=== PATIENT | female | born 1940 | race Caucasian/White ===

== ENCOUNTER 2017-05-02 09:04 | Day surgery (SDC) | payer OTHER, BC ==
[2017-04-27 15:14] VITALS: BMI 27.4
[2017-05-02] MEDS ORDERED: PROPOFOL 20 ML ONE ×2 (09:39)
[2017-05-02 11:07] VITALS: TEMP 97.8
[2017-05-02 11:35] VITALS: BP 155/72; PULSE 63
--- NOTE | 2017-05-03 15:41 | PATH ---
Surgical Pathology Report Patient Name: PATEL REYNOSO [facility]. Rec. #: [id number] /Age/Gender: 1940 (Age: 76) / F Account: [id number] Location: Taken: 05/02/2017 Received: 05/02/2017 Reported: 05/03/2017 Physicians: Bernard Cannon M.D. Specimen(s) Received BX LEFT COLON Clinical History Constipation Polyp Final Diagnosis LEFT COLON, BIOPSY: TUBULAR ADENOMA. Electronically Signed Sheree Fox M.D. Gross Description Received in formalin, labeled "left colon" is a de [place], irregular portion of soft tissue measuring 0.3 cm. in greatest dimension. The specimen is submitted in toto in one cassette. 05/02/201705/02/2017
== END 2017-05-02 11:35 | disposition home or self-care (01) ==
LOC: FASU-ENDO 09:04
PROVIDERS: ATTEND Internal Medicine Gastroenterology
PROC: 0DBM8ZX Excision of Descending Colon, Via Natural or Artificial Opening Endoscopic, Diagnostic (ICD-10-PCS; principal; 2017-05-02 10:26)
DX: Z12.11 Encounter for screening for malignant neoplasm of colon (principal); K59.00 Constipation, unspecified; D12.4 Benign neoplasm of descending colon; K57.30 Diverticulosis of large intestine without perforation or abscess without bleeding
CPT/HCPCS: 88305-TC